=== PATIENT | male | born 1955 | race Caucasian/White ===

== ENCOUNTER → 2020-07-20 | Outpatient (CLI) | payer MEDICARE, OTHER ==
--- NOTE | 2020-07-28 12:52 | REP ---
CT CHEST WITHOUT CONTRAST: LOW-DOSE SCREENING EXAM HISTORY: Lung screening. COMPARISON: Chest CT study 06/02/2015. FINDINGS: Preliminary digital regional agronomist radiograph shows emphysematous changes. Axial CT images demonstrate bullae in the apices, especially on the left and severe upper lobe emphysema. There is a benign appearing perifissural nodule in the right mid lung zone on Page 53 of 111 Series 201 of todays study. There is linear fibrosis in the right middle lobe. A granulomatous calcification is seen in the left lower lobe on Page 65. There is another perifissural nodule in the left lower lobe on Page 51. This measures 6 mm in greatest diameter. No other significant pulmonary nodule is appreciated. The perifissural nodules cannot be appreciated on the prior CT study. There were atelectatic changes and a small amount of pleural fluid present at that time. IMPRESSION: Benign appearing perifissural nodules. Lung-RADS Category 2 findings. Repeat screening exam suggested in one year. MTDD
== END ==
LOC: M RAD 10:39
PROVIDERS: ATTEND Nurse Practitioner Adult Health
DX: F17.218 Nicotine dependence, cigarettes, with other nicotine-induced disorders (principal)

== ENCOUNTER → 2022-01-16 | Outpatient (CLI) | payer MEDICARE, OTHER | LOC: M RAD 13:09 | PROVIDERS: ATTEND Nurse Practitioner Adult Health | DX: Z87.891 Personal history of nicotine dependence (principal) ==